=== PATIENT | female | born 1995 | race African-American/Black ===

== ENCOUNTER 2017-09-05 00:39 | Emergency (ER) | payer MEDICAID ==
[~2017-09-05] VITALS: Ht 170.2 cm; Wt 77.0 kg
[2017-09-05] MEDS ORDERED: KETOROLAC 30MG/ML VIAL IV STA (01:28)
[2017-09-05] MEDS ORDERED: ONDANSETRON HCL 4MG/2ML VIAL IV STA (01:28)
[2017-09-05 01:48] LABS: BASOPHILS % 0.2 % (0.0-2.0); EOSINOPHILS % 0.2 % (0.0-5.0); HEMATOCRIT. 37.2 % (36.0-48.0); HEMOGLOBIN. 12.6 g/dL (12.0-16.0); LYMPHOCYTES % 19.9 % (20.0-50.0); MEAN CORPUSCULAR HEMOGLOBIN 30.7 pg (28.0-32.0); MEAN CORPUSCULAR VOLUME 90.8 fL (81.0-99.0); MONOCYTES % 4.6 % (2.0-8.0); NEUTROPHILS % 75.1 % (40.0-76.0); PLATELET 151 x1000/uL (130-400); RED CELL DISTRIBUTION WIDTH 13.4 % (11.6-14.6)
[2017-09-05 01:52] LABS: CHLORIDE 105 mEq/L (98-107)
[2017-09-05 01:53] LABS: PROTHROMBIN TIME 10.8 sec (9.4-11.6)
[2017-09-05 02:00] LABS: CARBON DIOXIDE 29 mEq/L (21-32)
[2017-09-05] MEDS ORDERED: SODIUM CHLORIDE 0.9% 1,000 ML IV ONE ×2 (02:00→03:00)
[2017-09-05 02:31] LABS: CLARITY URINE TURBID (CLEAR); COLOR URINE DARK YELLOW (YELLOW); GLUCOSE URINE NEGATIVE (NEGATIVE); KETONES URINE TRACE (NEGATIVE); LEUKOCYTE ESTERASE URINE NEGATIVE (NEGATIVE); NITRITE URINE NEGATIVE (NEGATIVE); OCCULT BLOOD URINE 1+ (NEGATIVE); PROTEIN URINE NEGATIVE (NEGATIVE); SPECIFIC GRAVITY URINE 1.031 (1.005-1.030)
[2017-09-05 02:46] LABS: *AMPHETAMINES SCREEN URINE NEGATIVE (NEGATIVE); *BARBITURATES SCREEN URINE NEGATIVE (NEGATIVE); *BENZODIAZEPINES SCREEN URINE NEGATIVE (NEGATIVE); *COCAINE SCREEN URINE NEGATIVE (NEGATIVE); METHADONE URINE SCREEN NEGATIVE (NEGATIVE); PHENCYCLIDINE URINE SCREEN NEGATIVE (NEGATIVE)
[2017-09-05 02:58] LABS: CANNABINOID URINE SCREEN PRESUMTIVE POSITIVE (NEGATIVE); OPIATES URINE SCREEN PRESUMTIVE POSITIVE (NEGATIVE)
[2017-09-05] MEDS ORDERED: ONDANSETRON HCL 4MG/2ML VIAL IV ONE (03:00)
[2017-09-05 04:10] VITALS: BP 118/65
== END 2017-09-05 04:13 | disposition home or self-care (01) ==
LOC: ER 00:39
DX: K52.9 Noninfective gastroenteritis and colitis, unspecified (principal); F12.10 Cannabis abuse, uncomplicated; F39 Unspecified mood [affective] disorder
CPT/HCPCS: 36415; 80053; 80305; 81001; 81025; 83690; 85025; 85610; 96361; 96374; 96375; 96376; 99284; J1885; J2405; J7030; Z7610

== ENCOUNTER 2018-07-17 18:09 | Emergency (ER) | payer MEDICAID | END 2018-07-17 21:23 | disposition left against medical advice (07) | LOC: ER 18:09 | DX: R11.10 Vomiting, unspecified (principal); R19.7 Diarrhea, unspecified; Z53.21 Procedure and treatment not carried out due to patient leaving prior to being seen by health care provider ==

== ENCOUNTER 2019-05-16 19:46 | Emergency (ER) | payer MEDICAID ==
[~2019-05-16] VITALS: Ht 165.1 cm; Wt 66.0 kg
[2019-05-16] MEDS ORDERED: ALBUTEROL (0.083%) 2.5MG/3ML NEB HHN STA (20:54)
[2019-05-16] MEDS ORDERED: IPRATROPIUM BROMIDE (0.02%) 0.5MG/2.5ML NEB HHN STA (20:54)
[2019-05-16] MEDS ORDERED: PREDNISONE 20MG TABLET PO STA (20:54)
[2019-05-16 22:33] VITALS: BP 136/78
== END 2019-05-16 23:00 | disposition home or self-care (01) ==
LOC: ER 22:45
DX: J45.901 Unspecified asthma with (acute) exacerbation (principal); Z88.3 Allergy status to other anti-infective agents
CPT/HCPCS: 94644; 99285; J7512; J7611

== ENCOUNTER 2019-12-16 09:15 | Emergency (ER) | payer MEDICAID ==
[~2019-12-16] VITALS: Ht 165.1 cm; Wt 69.0 kg
[2019-12-16 09:44] VITALS: BP 122/77
== END 2019-12-16 12:02 | disposition left against medical advice (07) ==
LOC: ER 09:42
DX: Z53.21 Procedure and treatment not carried out due to patient leaving prior to being seen by health care provider (principal)